=== PATIENT | male | born 1950 | race Caucasian/White ===

== ENCOUNTER → 2018-10-29 | Outpatient (CLI) | payer BC ==
[~2018-10-29] MED LIST: ALBU8.5H2 IH; ASP81CT PO; CHOL100061 PO; CYCL10TA9 PO; HYDR50CA3 PO; LISI10TA PO; METO25TA PO; METO25TA2 PO; METO50TA7 PO; MULT-608 PO; NAPR-243 PO; OMEP-10 PO; OMEP20CA12 PO; OMG1KC PO; ONDA8TAB13 PO; PRED20TA PO; SIMV40TA2 PO; TRM50T PO
--- NOTE | 2018-10-29 13:39 | Diagnostic Imaging Report ---
EXAM: CHEST PA/LAT (TWO VIEWS). INDICATION: LEFT RIB PAIN, RESPIRATORY INFECTION. COMPARISON: Chest radiographs 04/26/2015. FINDINGS: Mild cardiomegaly. Normal central pulmonary vascularity. Sternotomy with mediastinal markers. Calcified aorta. Esophageal hiatal hernia. No focal pulmonary opacity, pleural effusion, or pneumothorax. No acute osseous findings. IMPRESSION: No acute cardiopulmonary findings. Mild cardiomegaly. Dictated by: Dictated on workstation # [id number]
== END ==
LOC: RAD 12:42
PROVIDERS: ATTEND Family Medicine
DX: J98.8 Other specified respiratory disorders (principal); I51.7 Cardiomegaly
CPT/HCPCS: 71046

== ENCOUNTER 2021-11-01 21:27 | Emergency (ER) | payer BC ==
[~2021-11-01] VITALS: Ht 178 cm; Wt 80.0 kg
--- NOTE | 2021-11-01 21:46 | ED General ---
General Stated Complaint: FOOD BOLUS Source of Information: Patient Exam Limitations: No Limitations (SHARI DANIELS APRN) History of Present Illness Date Seen by Provider: Nov 01, 2021 Time Seen by Provider: 21:44 Initial Comments Patient has stew meat stuck in his throat since about 430. He has been unable to swallow even his saliva since then. History of acid reflux not currently on any medication for it. History of EGD due to food impaction 2 times in the past by Dr. Webb most recently about 10 years ago. Does not smoke. Drinks 2-3 beers a day. History of hypertension hyperlipidemia coronary artery disease. Timing/Duration: 4-6 Hours Severity: Moderate Associated Systoms: Denies Symptoms (SHARI DANIESL APRN) Allergies and Home Medications Allergies Coded Allergies: No Known Drug Allergies (Verified , 09/25/08) Patient Home Medication List Home Medication List Reviewed: Yes (SHARI DANIELS APRN) Albuterol (Proair Hfa) 8.5 Gm Hfa.aer.ad, 2 PUFF IH RTQ4HR PRN for SHORTNESS OF BREATH Prescribed by: PRATEEK DIAL on 04/26/15 194 Aspirin (Aspirin 81 Mg Chew Tab) 81 Mg Chew, 81 MG PO HS, (Reported) Entered as Reported by: ISSA WALLACE on 10/29/09 1124 Cholecalciferol (Vitamin D3) (Vitamin D3) 1,000 Unit Tablet, 1,000 UNIT PO DAILY, (Reported) Entered as Reported by: MERON RAGLAND on 12/13/14 1002 Lisinopril (Zestril) 10 Mg Tablet, 10 MG PO DAILY, (Reported) Entered as Reported by: ISSA WALLACE on 10/29/09 1123 Metoprolol Tartrate (Lopressor Tab) 25 Mg Tablet, 25 MG PO BID, (Reported) Entered as Reported by: MATHEUS FLORES on 04/26/15 1552 Multivitamins (Multiple Vitamin) 1 Tab Tablet, 1 TAB PO DAILY, (Reported) Entered as Reported by: ISSA WALLACE on 10/29/09 1124 [place] 3 Polyunsat Fatty Acids (Fish Oil) 1,000 Mg Cap, 1,000 MG PO DAILY, (Reported) Entered as Reported by: RUEL NOGUEIRA on 04/25/12 2141 Omeprazole (Omeprazole) 20 Mg Capsule.dr, 20 MG PO DAILY, (Reported) Entered as Reported by: MATHEUS FLORES on 04/26/15 1552 Ondansetron (Ondansetron Odt) 8 Mg Tab.rapdis, 8 MG PO Q6H PRN for NAUSEA/VOM ITING Prescribed by: PRATEEK DIAL on 04/26/151940 Pantoprazole Sodium (Protonix) 40 Mg Tablet., 40 MG PO DAILY Prescribed by: AGUS FRAGA on 11/01/21 2324 Prednisone (Prednisone) 20 Mg Tablet, 40 MG PO DAILY Prescribed by: PRATEEK DIAL on 04/26/151940 Simvastatin (Zocor) 40 Mg Tablet, 40 MG PO HS, (Reported) Entered as Reported by: ISSA WALLACE on 10/29/09 1124 Review of Systems Review of Systems Constitutional: see HPI EENTM: see HPI Respiratory: no symptoms reported Cardiovascular: no symptoms reported Genitourinary: no symptoms reported Musculoskeletal: no symptoms reported Skin: no symptoms reported Psychiatric/Neurological: No Symptoms Reported Hematologic/Lymphatic: No Symptoms Reported Immunological/Allergic: no symptoms reported (SHARI DANIELS APRN) Past Qrtdjmu-Otearn-Mxtomi Hx Immunizations Up To Date Tetanus Booster (TDap): Less than 5yrs (SHARI DANIELS APRN) Past Medical History CABG COPD Heart Attack, High Cholesterol, Hypertension Reproductive Disorders: No Sexually Transmitted Disease: No HIV/AIDS: No Gastroesophageal Reflux, Gastrointestinal Bleed, Ulcer Skin Anxiety Adverse Reaction/Blood Tranf: No (SHARI DANIELS APRN) Family Medical History Abdominal aortic aneurysm 19 MOTHER Cardiovascular disease G8 BROTHER Hypertension G8 BROTHER G8 SISTER G8 SISTER Prostate cancer 19 FATHER No Family History of: Congenital heart disease No Pertinent Family Hx (SHARI DANIELS APRN) Physical Exam Vital Signs Vital Signs - First Documented 11/01/21 21:32 Temp 36.9 Pulse 76 Resp 18 B/P (MAP) 146/87 (106) Pulse Ox 95 O2 Delivery Room Air (AMY BAUMANN DO) Vital Signs Capillary Refill : (SHARI DANIELS APRN) Height, Weight, BMI Height: 5'9" Weight: 165lbs. oz. 74.166698td; BMI Method:Estimated General Appearance: No Apparent Distress, WD/WN Eyes: Bilateral Eye Normal Inspection, Bilateral Eye PERRL Neck: Full Range of Motion, Normal Inspection Respiratory: No Accessory Muscle Use, No Respiratory Distress Cardiovascular: Regular Rate, Rhythm, Normal Peripheral Pulses Gastrointestinal: Normal Bowel Sounds, Non Tender, Soft Extremity: Normal Capillary Refill, Normal Inspection Neurologic/Psychiatric: Alert, Oriented x3 Skin: Normal Color, Warm/Dry (SHARI DANIELS APRN) Progress/Results/Core Measures Suspected Sepsis SIRS Temperature: Pulse: Respiratory Rate: Blood Pressure / Mean: (SHARI DANIELS APRN) Results/Orders Vital Signs/I&O 11/01/21 11/01/21 11/01/21 11/01/21 21:32 23:30 23:30 23:31 Temp 36.9 36.3 Pulse 76 Resp 18 18 16 B/P (MAP) 146/87 (106) 112/72 (85) 114/74 (87) Pulse Ox 95 99 100 O2 Delivery Room Air OxyMask OxyMask OxyMask O2 Flow Rate 10 10 10 11/01/21 11/01/21 11/01/21 11/02/21 23:40 23:50 23:55 00:00 Temp 36.1 Resp 14 14 16 B/P (MAP) 112/70 (84) 113/72 (86) 119/72 (88) Pulse Ox 100 96 97 O2 Delivery OxyMask Room Air Room Air Room Air O2 Flow Rate 10 11/02/21 11/02/21 00:20 00:45 Pulse 72 Resp 16 B/P (MAP) 135/93 Pulse Ox 96 O2 Delivery Room Air Room Air (AMY BAUMANN DO) Vital Signs/I&O Capillary Refill : (SHARI DANIELS APRN) Departure Communication (Admissions) [id number]-Dr. Fraga here has seen the patient, awaiting EGD staff. (SHARI DANIELS APRN) Impression Primary Impression: Esophageal obstruction due to food impaction Disposition: 01 HOME, SELF-CARE Condition: Stable Departure-Patient Inst. Decision time for Depature: 22:32 (SHARI DANIELS APRN) Referrals: ARCHIE NEFF DO (PCP/Family) Primary Care Physician Patient Instructions: Food Obstruction Scripts Pantoprazole Sodium (Protonix) 40 Mg Tablet. 40 MG PO DAILY, #30 TAB 3 Refills Prov: AGUS RFAGA DO 11/01/21 Work/School Note: Work Release Form Date Seen in the Emergency Department: Nov 01, 2021 Return to Work: Nov 03, 2021 ATTENDING PHYSICIAN NOTE: I WAS PHYSICALLY PRESENT ER PHYSICIAN WHEN THIS PATIENT WAS IN ER, I WAS NOT INVOLVED IN ANY DECISION MAKING OR ANY CARE OF THIS PATIENT (AMY BAUMANN DO) SHARI DANIELS APRN Nov 01, 2021 21:46 AMY BAUMANN DO Nov 04, 2021 02:33
--- NOTE | 2021-11-01 22:00 | Consultation - Surgery ---
History of Present Illness History of Present Illness Patient Consulted On(dena/time) 11/01/21 21:54 Date Seen by Provider: Nov 01, 2021 Time Seen by Provider: 21:54 History of Present Illness Consult requested by Shelton Farr for food bolus. Seen and evaluated in ED. Patient is 71 year old male eating beef stew around 4:30 today. Was in a hurry and felt bite get stuck. Unable to get it to pass. Having to spit up his secretions. Has had this occur 2 other times. Nothing making it better. Overall uncomfortable. No other complaints at this time. Denies fever sweats chills shortness of breath or chest pain. Allergies and Home Medications Allergies Coded Allergies: No Known Drug Allergies (Verified , 09/25/08) Patient Home Medication List Home Medication List Reviewed: Yes Albuterol (Proair Hfa) 8.5 Gm Hfa.aer.ad, 2 PUFF IH RTQ4HR PRN for SHORTNESS OF BREATH Prescribed by: PRATEEK DIAL on 04/26/15 1941 Aspirin (Aspirin 81 Mg Chew Tab) 81 Mg Chew, 81 MG PO HS, (Reported) Entered as Reported by: ISSA WALLACE on 10/29/09 1124 Cholecalciferol (Vitamin D3) (Vitamin D3) 1,000 Unit Tablet, 1,000 UNIT PO DA KELLIE, (Reported) Entered as Reported by: MERON RAGLAND on 12/13/14 1002 Lisinopril (Zestril) 10 Mg Tablet, 10 MG PO DAILY, (Reported) Entered as Reported by: ISSA WALLACE on 10/29/09 1123 Metoprolol Tartrate (Lopressor Tab) 25 Mg Tablet, 25 MG PO BID, (Reported) Entered as Reported by: MATHEUS FLORES on 04/26/15 1552 Multivitamins (Multiple Vitamin) 1 Tab Tablet, 1 TAB PO DAILY, (Reported) Entered as Reported by: ISSA WALLACE on 10/29/09 1124 [place] 3 Polyunsat Fatty Acids (Fish Oil) 1,000 Mg Cap, 1,000 MG PO DAILY, (Reported) Entered as Reported by: RUEL NOGUEIRA on 04/25/12 2141 Omeprazole (Omeprazole) 20 Mg Capsule.dr, 20 MG PO DAILY, (Reported) Entered as Reported by: MATHEUS FLORES on 04/26/15 155 Ondansetron (Ondansetron Odt) 8 Mg Tab.rapdis, 8 MG PO Q6H PRN for NAUSEA/VOMITING Prescribed by: PRATEEK DIAL on 04/26/151940 Prednisone (Prednisone) 20 Mg Tablet, 40 MG PO DAILY Prescribed by: PRATEEK DIAL on 04/26/151940 Simvastatin (Zocor) 40 Mg Tablet, 40 MG PO HS, (Reported) Entered as Reported by: ISSA WALLACE on 10/29/09 1124 Past Svzleml-Cqennl-Gbziqo Hx Patient Social History Smoking Status: Former Smoker Alcohol Use?: Yes Have you traveled recently?: No Immunizations Up To Date Tetanus Booster (TDap): Less than 5yrs Surgeries Surgeries: CABG Respiratory Respiratory Disorders: COPD Cardiovascular Cardiac Disorders: Heart Attack, High Cholesterol, Hypertension Reproductive System Hx Reproductive Disorders: No Sexually Transmitted Disease: No HIV/AIDS: No Gastrointestinal Gastrointestinal Disorders: Gastroesophageal Reflux, Gastrointestinal Bleed, Ulcer Cancer Cancer: Skin Psychosocial Behavioral Health Disorders: Anxiety Blood Transfusions Adverse Reaction to a Blood Tr: No Reviewed Nursing Assessment Reviewed/Agree w Nursing PMH: Yes Family Medical History Significant Family History: No Pertinent Family Hx Family Medial History: Abdominal aortic aneurysm 19 MOTHER Cardiovascular disease G8 BROTHER Hypertension G8 BROTHER G8 SISTER G8 SISTER Prostate cancer 19 FATHER No Family History of: Congenital heart disease Review of Systems-General Constitutional: No chills, No weakness EENTM: No blurred vision, No double vision Respiratory: No cough, No short of breath Cardiovascular: No chest pain, No palpitations Gastrointestinal: No abdominal pain; other (spitting up secretions) Genitourinary: No decreased output, No discharge Musculoskeletal: No back pain, No joint pain Skin: No change in color, No change in hair/nails Psychiatric/Neurological: Denies Anxiety, Denies Depressed, Denies Emotional Problems All Other Systems Reviewed Negative Unless Noted: Yes (Negative excepted noted.) Physical Exam-General Problems Physical Exam Vital Signs Vital Signs - First Documented 11/01/21 21:32 Temp 36.9 Pulse 76 Resp 18 B/P (MAP) 146/87 (106) Pulse Ox 95 O2 Delivery Room Air Capillary Refill : Less Than 3 Seconds General Appearance: WD/WN, no apparent distress HEENT: PERRL/EOMI, normal ENT inspection Neck: non-tender, supple Respiratory: chest non-tender, no respiratory distress, no accessory muscle use Cardiovascular: regular rate, rhythm, no JVD Gastrointestinal: non tender, soft Rectal: deferred Back: no CVA tenderness, no vertebral tenderness Extremities: non-tender, normal inspection Neurologic/Psychiatric: alert, normal mood/affect, oriented x 3 Skin: normal color, warm/dry Lymphatic: no adenopathy Assessment/Plan Assessment/Plan Assessment/Plan esophageal obstruction secondary to food bolus discussed risks and benefits of esophagogastroduodenoscopy and all other indicated procedures. he understands and wishes to proceed. NPO To proceed at this time. AGUS FRAGA DO Nov 01, 2021 22:00
[2021-11-01] MEDS ORDERED: SEVOFLURANE (ULTANE) 15 ML INHAL SOLN ONE (22:05)
[2021-11-01] MEDS ORDERED: ONDANSETRON 4 MG/2 ML (SDV) Z0FRAN ONE (22:05)
[2021-11-01] MEDS ORDERED: SUCCINYLCHOLINE INJ 100 MG/5 ML SYR/VIAL ONE (22:05)
[2021-11-01] MEDS ORDERED: LIDOCAINE PF 2% 5 ML (XYLOCAINE) VIAL ONE (22:05)
[2021-11-01] MEDS ORDERED: proPOfol 200 MG/20 ML (DIPRIVAN) VIAL IV ONE (22:05)
[2021-11-01] MEDS ORDERED: MIDAZOLAM 2 MG/2 ML (VERSED) VIAL ONE (22:35)
[2021-11-01] MEDS ORDERED: PHENYLEPHRINE 100 MCG/ML 10 ML (ANESTHESIA) SYR ONE (23:21)
[2021-11-01] MEDS ORDERED: PANT40TA2 PO (23:24)
--- NOTE | 2021-11-01 23:27 | Discharge Inst-Simple/Standard ---
Discharge Inst-Standard Discharge Medications New, Converted or Re-Newed RX: Transmitted to Pharmacy Patient Instructions/Follow Up Plan of Care/Instructions/FU: 3-4 weeks Ronnell Activity as Tolerated: Yes Discharge Diet: Liquid Diet (For 2 days then advance diet to soft (easily swallowed) No meats or large/raw vegetables) AGUS FRAGA DO Nov 01, 2021 23:27
--- NOTE | 2021-11-01 23:29 | Progress Note-Post Operative ---
Post-Operative Progess Note Surgeon (s)/Sheet Rock Applier (s) Surgeon AGUS FRAGA DO Sheet [place] Applier: na Pre-Operative Diagnosis esophageal obstruction food bolus Post-Operative Diagnosis esophageal obstruction food bolus, hiatal hernia, gastritis, esophagitis Procedure & Operative Findings Date of Procedure 11/01/21 Procedure Performed/Findings egd c removal food bolus Anesthesia Type general Estimated Blood Loss Estimated blood loss (mL): none Specimens/Packing Specimens Removed none AGUS FRAGA DO Nov 01, 2021 23:29
[2021-11-01 23:30] VITALS: BP 112/72
[2021-11-01 23:31] VITALS: BP 114/74
[2021-11-01 23:40] VITALS: BP 112/70
--- NOTE | 2021-11-01 23:41 | Anesthesia-General Post-Op ---
General Patient Condition Mental Status/LOC: Same as Preop Cardiovascular: Satisfactory Nausea/Vomiting: Absent Respiratory: Satisfactory Pain: Controlled Complications: Absent Post Op Complications Complications None Follow Up Care/Instructions Patient Instructions None needed. Anesthesia/Patient Condition Patient Condition Patient is doing well, no complaints, stable vital signs, no apparent adverse anesthesia problems. No complications reported per nursing. SINTIA RODRIGUEZ CRNA Nov 01, 2021 23:41
[2021-11-01] MEDS ORDERED: morphine INJ 10 MG/ML 1ML (SYR OR VIAL) IVP ONE (23:45)
[2021-11-01] MEDS ORDERED: ONDANSETRON 4 MG/2 ML (SDV) Z0FRAN IVP PRN (23:45)
[2021-11-01 23:50] VITALS: BP 113/72
[2021-11-02] VITALS: BP 119/72
[2021-11-02 00:45] VITALS: BP 135/93
--- NOTE | 2021-11-02 09:22 | OPERATIVE REPORT ---
DATE OF SERVICE: 11/01/2021 PREOPERATIVE DIAGNOSIS: Esophageal obstruction with food bolus. . POSTOPERATIVE DIAGNOSES: Esophageal obstruction with food bolus; hiatal hernia; gastritis; esophagitis. PROCEDURE: EGD with removal of food bolus. SURGEON: Agus Reynaga DO ANESTHESIA: General. ESTIMATED BLOOD LOSS: None. COMPLICATIONS: None. INDICATIONS: The patient is a 71-year-old male who presented with an esophageal food bolus, unable to keep down secretions, ____ spit them up. The patient was explained the risks and benefits of procedure and wished to proceed. Consent was signed in the chart. DESCRIPTION OF PROCEDURE: The patient was taken to the operating suite. He was intubated. Timeout was performed. Scope was inserted in the mouth, down the esophagus. In esophagus, significant amount of secretions present, which were suctioned. A large amount of food particulate present, which was then continued to be suctioned and then came to an area where there was stricture with a large piece of meat within this area. Multiple devices were used to continue to take pieces of the meat until the majority of it was able to be withdrawn. At this point, the scope was then able to be placed through the narrowing and the remainder of the steak was able to be pushed into the stomach without difficulty. In the distal esophagus, there was area of some inflammation with noting erythema. Scope was then advanced through the stomach into the duodenum without difficulty. There were no polyps, masses or ulcerations within the duodenum. Scope was slowly retracted back to stomach where it was further insufflated. Areas of gastritis was apparent. Scope was retroflexed noting a hiatal hernia. Scope was then returned to its normal position, slowly withdrawn to distal esophagus again noting the area of narrowing and inflammation consistent with esophagitis. A Curtis Net was used to remove particulate removing the remainder of this in the esophagus and repeating until it was all evacuated. Scope was then slowly retracted back until completely removed. The patient tolerated the procedure well without any complications. He was taken to recovery room in stable condition. RECOMMENDATIONS: The patient will be on Protonix 40 mg daily. I would recommend repeating an endoscopy in 6-8 weeks to evaluate the area further and also possibly dilate the area of narrowing if needed. We will have the patient stay on liquid diet for 2 days and slowly advance as well. Job ID: [id number] DocumentID: [id number] Dictated Date: 11/01/2021 23:33:27 Wool Supplier Date: 11/02/2021 06:59:50 Dictated By: AGUS REYNAGA DO
--- NOTE | 2021-11-02 09:36 | Anesthesia-General Post-Op ---
General Patient Condition Mental Status/LOC: Same as Preop Cardiovascular: Satisfactory Nausea/Vomiting: Absent Respiratory: Satisfactory Pain: Controlled Complications: Absent Post Op Complications Complications None Follow Up Care/Instructions Patient Instructions None needed. Anesthesia/Patient Condition Patient Condition Patient is doing well, no complaints, stable vital signs, no apparent adverse anesthesia problems. No complications reported per nursing. FLORIDALMA ROE CRNA Nov 02, 2021 09:36
== END 2021-11-02 00:46 | disposition home or self-care (01) ==
LOC: EDUNIT# 21:27 → ER 21:28
DX: K22.2 Esophageal obstruction (principal); J44.9 Chronic obstructive pulmonary disease, unspecified; I25.2 Old myocardial infarction; I10 Essential (primary) hypertension; K21.9 Gastro-esophageal reflux disease without esophagitis; E78.00 Pure hypercholesterolemia, unspecified; Z79.82 Long term (current) use of aspirin; Z79.899 Other long term (current) drug therapy

== ENCOUNTER → 2023-08-05 | Outpatient (CLI) | payer BC ==
[~2023-08-05] MED LIST changes: +PANT40TA2 PO
[2023-08-05 14:42] LABS: CREATININE SERUM 0.86 MG/DL (0.60-1.30)
--- NOTE | 2023-08-05 20:38 | Diagnostic Imaging Report ---
73-year-old male with bilateral carotid artery stenosis. COMPARISONS: 12/13/2014 FINDINGS: There is a bovine origin of the left common carotid artery. Both common carotid arteries are widely patent. Carotid bifurcations showed calcific atherosclerosis with some mixed plaque in the right ICA origin. There is mild 30% narrowing at the origin of the right ICA. The cervical, high cervical, petrous, cavernous and supraclinoid segments of both ICAs are patent with some tortuosity seen in the cervical segments. The carotid siphons show minimal calcific atherosclerosis but no evidence of hemodynamically significant stenosis. There is a prominent left posterior communicating artery. A1, proximal A2 segments, M1, proximal M2 segments are patent with no large vessel or medium vessel occlusion present. The vertebral arteries are codominant and are patent to the skull base. The PICA, basilar artery, AICA, SCA and cyber security consultant are also patent. Lung apices are clear. Superior mediastinum is unremarkable. Parapharyngeal and paraspinous soft tissues are also unremarkable. IMPRESSION: 1. Minimal bilateral carotid bifurcation disease but with evidence of hemodynamically significant stenosis. 2. There is minimal mixed plaque at the origin of the great vessels. This does result in approximately 50% stenosis in the left subclavian artery. 3. Codominant vertebral arteries which are widely patent to skull base. 4. There are diffuse interstitial opacities in both lungs suggesting diffuse atelectasis versus pneumonitis. An element of COPD is also suggested 5. There is prominent soft tissue density in the posterior mediastinum which may correlate with the dilated fluid-filled esophagus on the previous CT. Dictated by: Dictated on workstation # [id number]
== END ==
LOC: RAD 13:44
PROVIDERS: ATTEND Internal Medicine Cardiovascular Disease
DX: I65.23 Occlusion and stenosis of bilateral carotid arteries (principal); R91.8 Other nonspecific abnormal finding of lung field
CPT/HCPCS: 36415; 70498; 82565; 84520